=== PATIENT | female | born 1945 | race Caucasian/White ===

== ENCOUNTER → 2016-10-25 | Outpatient (REF) | payer MEDICARE, OTHER ==
[~2016-10-25] MED LIST: ASPI81TA85 PO; BYDU1INJ SC; CARV12.5 PO; CLEO1GEL TOP; CLEO300C2 PO; CORE25TA PO; ELIQ2.5T PO; ELIQ5TAB PO; LANO250T9 PO; LEVO100T5 PO; LEVO88TA3 PO; LIPI20TA PO; LISI10TA4 PO; LISI40TAB PO; METF1000 PO; METF500T PO; METR1GEL4 TOP; METROGEL; MULT1TAB8 PO; VITA10002 PO; VITA100066 PO; VITMTA PO; metformin; novofine; vitamin b12
[2016-10-25 12:01] LABS: MEAN CORPUSCULAR HEMOGLOBIN 26.5 pg (27.0-33.0); MEAN CORPUSCULAR HGB CONC 31.9 g/dl (32.0-36.5); MEAN CORPUSCULAR VOLUME 83.1 fl (80.0-96.0); RED CELL DISTRIBUTION WIDTH 14.9 % (11.5-14.5); WHITE BLOOD COUNT 7.4 K/mm3 (4.0-10.0)
[2016-10-25 12:20] LABS: ALBUMIN 3.7 GM/DL (3.2-5.2); ALBUMIN/GLOBULIN RATIO 1.32 (1.00-1.93); ALKALINE PHOSPHATASE 74 U/L (45-117); ALT/SGPT 20 U/L (12-78); ANION GAP 8 MEQ/L (8-16); AST/SGOT 10 U/L (15-37); BILIRUBIN,TOTAL 0.4 MG/DL (0.2-1.0); BLOOD UREA NITROGEN 10 MG/DL (7-18); CARBON DIOXIDE LEVEL 30 MEQ/L (21-32); CHLORIDE LEVEL 107 MEQ/L (98-107); CHOLESTEROL LEVEL 120 MG/DL (<200); CREATININE FOR GFR 0.82 MG/DL (0.55-1.02); FREE T4 1.14 NG/DL (0.76-1.46); GLOMERULAR FILTRATION RATE > 60.0 (>39); GLUCOSE, FASTING 146 MG/DL (83-110); SODIUM LEVEL 145 MEQ/L (136-145); TOTAL PROTEIN 6.5 GM/DL (6.4-8.2); TRIGLYCERIDES LEVEL 110 MG/DL (<150)
== END ==
LOC: M SFHCPLAZ 08:50
PROVIDERS: ATTEND Family Medicine
DX: I48.91 Unspecified atrial fibrillation (principal); I27.2 Other secondary pulmonary hypertension; E11.9 Type 2 diabetes mellitus without complications; E78.2 Mixed hyperlipidemia

== ENCOUNTER → 2016-11-02 | Outpatient (REF) | payer MEDICARE, OTHER ==
[~2016-11-02] MED LIST changes: +LANO250T12 PO; -LANO250T9 PO
[2016-11-02 13:48] LABS: MEAN CORPUSCULAR HEMOGLOBIN 25.4 pg (27.0-33.0); MEAN CORPUSCULAR HGB CONC 30.8 g/dl (32.0-36.5); MEAN CORPUSCULAR VOLUME 82.3 fl (80.0-96.0); RED CELL DISTRIBUTION WIDTH 16.3 % (11.5-14.5); RETIC HEMOGLOBIN CONTENT CHr 27.1 PG (24-36); RETICULOCYTE % ADVIA2120 1.3 % (0.5-1.5)
[2016-11-02 14:22] LABS: FERRITIN 9 NG/ML (8-252); PERCENT SATURATION 6.8 % (13.2-37.4); TOTAL IRON BINDING CAPACITY 384 UG/DL (250-450)
[2016-11-02 14:23] LABS: VITAMIN B12 LEVEL 385 PG/ML (247-911)
[2016-11-02 14:24] LABS: FOLATE > 24.0 NG/ML (>5.4)
[2016-11-02 19:06] LABS: MICROSCOPIC INDICATED? MAN NO (NO)
[2016-11-08 08:06] LABS: FREE KAPPA LIGHT CHAINS SERUM 22.09 mg/L (3.30-19.40); FREE KAPPA LIGHT CHAINS URINE 4.66 mg/L (1.35-24.19); FREE LAMBDA LIGHT CHAINS SERUM 19.26 mg/L (5.71-26.30); FREE LAMBDA LIGHT CHAINS URINE 0.35 mg/L (0.24-6.66); KAPPA/LAMBDA RATIO SERUM 1.15 (0.26-1.65)
== END ==
LOC: M SFHCPLAZ 11:13
PROVIDERS: ATTEND Family Medicine
DX: D64.9 Anemia, unspecified (principal)
CPT/HCPCS: 36415; 81002; 82607; 82728; 82746; 83550; 83883; 83921; 85027; 85046; G0463

== ENCOUNTER → 2016-11-16 | Outpatient (REF) | payer MEDICARE, OTHER ==
[2016-11-16 19:32] LABS: TOTAL PROTEIN 7.8 GM/DL (6.4-8.2)
[2016-11-19 11:34] LABS: ALBUMIN 4.45 GM/DL (3.29-5.55); ALBUMIN % 57.1 % (55.8-66.1)
== END ==
LOC: M SFHCADAM 13:56
PROVIDERS: ATTEND Family Medicine
DX: C90.00 Multiple myeloma not having achieved remission (principal)
CPT/HCPCS: 84165; 84166; 86335; G0463

== ENCOUNTER → 2016-12-11 | Outpatient (REF) | payer MEDICARE, OTHER ==
[2016-12-11 19:41] LABS: FERRITIN 14 NG/ML (8-252); IMMUNOGLOBULIN G 925 MG/DL (681-1648); IMMUNOGLOBULIN M 46.4 MG/DL (40-230); PERCENT SATURATION 8.2 % (13.2-37.4); TOTAL IRON BINDING CAPACITY 376 UG/DL (250-450)
== END ==
LOC: M LAB REF 16:38
PROVIDERS: ATTEND Internal Medicine Medical Oncology
DX: D89.2 Hypergammaglobulinemia, unspecified (principal); D50.9 Iron deficiency anemia, unspecified

== ENCOUNTER → 2017-02-01 | Outpatient (REF) | payer MEDICARE, OTHER ==
[~2017-02-01] MED LIST changes: +DIGO0.25 PO; +FERR325T3 PO; -LANO250T12 PO; +LANO250T15 PO
[2017-02-01 18:53] LABS: BASO % 0.3 % (0.0-1.0); EOS # 0.1 K/mm3 (0.0-0.50); EOS % 1.7 % (0.0-3.0); LARGE UNSTAINED CELL # 0.1 K/mm3 (0.0-0.4); LARGE UNSTAINED CELL % 1.7 % (0.0-4.0); LYMPH # 1.2 K/mm3 (1.5-4.5); LYMPH % 18.7 % (24.0-44.0); MEAN CORPUSCULAR HEMOGLOBIN 27.4 pg (27.0-33.0); MEAN CORPUSCULAR HGB CONC 31.3 g/dl (32.0-36.5); MEAN CORPUSCULAR VOLUME 87.6 fl (80.0-96.0); MONO # 0.3 K/mm3 (0.0-0.8); MONO % 4.4 % (0.0-5.0); NEUTROPHILS # 4.3 K/mm3 (1.8-7.7); NEUTROPHILS % 73.1 % (36.0-66.0); PLATELET COUNT, AUTOMATED 139 k/mm3 (150-450); RED CELL DISTRIBUTION WIDTH 15.5 % (11.5-14.5); WHITE BLOOD COUNT 5.9 K/mm3 (4.0-10.0)
[2017-02-01 19:12] LABS: ERYTHROCYTE SEDIMENTATION RATE 8 mm/hr (0-30)
[2017-02-01 19:14] LABS: ALBUMIN 3.7 GM/DL (3.2-5.2); ALBUMIN/GLOBULIN RATIO 1.12 (1.00-1.93); ALKALINE PHOSPHATASE 76 U/L (45-117); ALT/SGPT 23 U/L (12-78); ANION GAP 3 MEQ/L (8-16); AST/SGOT 17 U/L (15-37); BILIRUBIN,TOTAL 0.3 MG/DL (0.2-1.0); BLOOD UREA NITROGEN 13 MG/DL (7-18); CALCIUM LEVEL 8.4 MG/DL (8.8-10.2); CARBON DIOXIDE LEVEL 31 MEQ/L (21-32); CHLORIDE LEVEL 104 MEQ/L (98-107); CREATININE FOR GFR 0.82 MG/DL (0.55-1.02); GLOMERULAR FILTRATION RATE > 60.0 (>39); GLUCOSE, FASTING 145 MG/DL (83-110); POTASSIUM SERUM 4.5 MEQ/L (3.5-5.1); SODIUM LEVEL 138 MEQ/L (136-145)
[2017-02-06 00:11] LABS: Lyme Disease IgG/IgM Antibodie <0.91 ISR (0.00-0.90); Lyme Disease IgM Ab Quantitati <0.80 index (0.00-0.79)
== END ==
LOC: M SFHCADAM 14:46
PROVIDERS: ATTEND Physician Assistant Medical
DX: R53.83 Other fatigue (principal); M25.50 Pain in unspecified joint
CPT/HCPCS: 80053; 84443; 85025; 85652; 86140; 86617; G0463

== ENCOUNTER → 2017-02-20 | Outpatient (CLI) | payer MEDICARE, BC, OTHER ==
[~2017-02-20] VITALS: Ht 160 cm; Wt 66.2 kg
[~2017-02-20] MED LIST changes: +LIDOCAINE 2% INJ 100 MG/5 ML SDV (FOR ANES.) As Ordered ONE; +NS 1,000 ML IV ONE; +PROPOFOL 200 MG/20 ML VIAL As Ordered ONE
--- NOTE | 2017-02-20 09:42 | ROOR ---
Patient Name: Wilma Saeed Procedure Date: 02/20/2017 9:29 AM Date of : 1945 Age: 72 Room: [facility] Gender: Female Note Status: Finalized Procedure: Upper GI endoscopy + SBB Indications: Iron deficiency anemia Providers: Ronnie Ulloa MD Referring MD: Bladimir Burt MD Requesting Provider: Medicines: Monitored Anesthesia Care Complications: No immediate complications. Procedure: Pre-Anesthesia Assessment: - The heart rate, respiratory rate, oxygen saturations, blood pressure, adequacy of pulmonary ventilation, and response to care were monitored throughout the procedure. The Endoscope was introduced through the mouth, and advanced to the second part of duodenum. The upper GI endoscopy was accomplished without difficulty. The patient tolerated the procedure well. Findings: The Z-line was regular and was found 35 cm from the incisors. A large amount of food (residue) was found on the greater curvature of the stomach. The exam of the duodenum was otherwise normal. Biopsies for histology were taken with a cold forceps in the first portion of the duodenum for evaluation of celiac disease. The exam was otherwise without abnormality. Impression: - Z-line regular, 35 cm from the incisors. - A large amount of food (residue) in the stomach. - The examination was otherwise normal. - Biopsies were taken with a cold forceps for evaluation of celiac disease. - The examination was otherwise normal. Recommendation: - Patient has a contact number available for emergencies. The signs and symptoms of potential delayed complications were discussed with the patient. Return to normal activities tomorrow. Written discharge instructions were provided to the patient. - High fiber diet. - Discharge patient to home. - Continue present medications. - Follow an antireflux regimen. - Telephone GI clinic for pathology results in 1 week. - Check Portal Online for Path Results.([email or web address]) - Return to referring physician. - The findings and recommendations were discussed with the patient's family. - Resume Eliquis (apixaban) at prior dose today. Ronnie Ulloa MD Ronnie Ulloa MD 02/20/2017 9:41:50 AM This report has been signed electronically. Number of Addenda: 0 Note Initiated On: 02/20/2017 9:29 AM Estimated Blood Loss: Estimated blood loss: none.
[2017-02-20 10:13] VITALS: BP 143/80
== END | disposition home or self-care (01) ==
LOC: M OPP 08:26
PROVIDERS: ATTEND Internal Medicine Gastroenterology
DX: D50.9 Iron deficiency anemia, unspecified (principal); R10.9 Unspecified abdominal pain; I48.91 Unspecified atrial fibrillation; I10 Essential (primary) hypertension; E78.5 Hyperlipidemia, unspecified; E11.9 Type 2 diabetes mellitus without complications; E03.9 Hypothyroidism, unspecified; M19.90 Unspecified osteoarthritis, unspecified site; M54.2 Cervicalgia; Z87.820 Personal history of traumatic brain injury; Z78.0 Asymptomatic menopausal state; G47.30 Sleep apnea, unspecified; R06.83 Snoring; L71.9 Rosacea, unspecified; Z88.7 Allergy status to serum and vaccine; Z79.84 Long term (current) use of oral hypoglycemic drugs; Z79.899 Other long term (current) drug therapy; Z79.01 Long term (current) use of anticoagulants; Z80.9 Family history of malignant neoplasm, unspecified

== ENCOUNTER → 2017-04-19 | Outpatient (REF) | payer MEDICARE, OTHER ==
[~2017-04-19] MED LIST changes: -LIDOCAINE 2% INJ 100 MG/5 ML SDV (FOR ANES.) As Ordered ONE; -METF1000 PO; +METF10004 PO; -METF500T PO; +METF500T13 PO; -NS 1,000 ML IV ONE; -PROPOFOL 200 MG/20 ML VIAL As Ordered ONE
[2017-04-19 10:50] LABS: MEAN CORPUSCULAR HEMOGLOBIN 29.5 pg (27.0-33.0); MEAN CORPUSCULAR VOLUME 89.1 fl (80.0-96.0); RED CELL DISTRIBUTION WIDTH 13.3 % (11.5-14.5); RETICULOCYTE % 1.7 % (0.5-1.5); WHITE BLOOD COUNT 6.8 K/mm3 (4.0-10.0)
[2017-04-19 11:35] LABS: ALBUMIN 4.3 GM/DL (3.2-5.2); ALBUMIN/GLOBULIN RATIO 1.59 (1.00-1.93); ALKALINE PHOSPHATASE 78 U/L (45-117); ALT/SGPT 27 U/L (12-78); ANION GAP 6 MEQ/L (8-16); AST/SGOT 18 U/L (15-37); BILIRUBIN,TOTAL 0.7 MG/DL (0.2-1.0); BLOOD UREA NITROGEN 12 MG/DL (7-18); CALCIUM LEVEL 9.6 MG/DL (8.8-10.2); CARBON DIOXIDE LEVEL 32 MEQ/L (21-32); CHLORIDE LEVEL 103 MEQ/L (98-107); CREATININE FOR GFR 0.83 MG/DL (0.55-1.02); FERRITIN 44 NG/ML (8-252); GLOMERULAR FILTRATION RATE > 60.0 (>39); GLUCOSE, FASTING 146 MG/DL (83-110); PERCENT SATURATION 29.4 % (13.2-37.4); POTASSIUM SERUM 4.8 MEQ/L (3.5-5.1); SODIUM LEVEL 141 MEQ/L (136-145); TOTAL IRON BINDING CAPACITY 327 UG/DL (250-450)
== END ==
LOC: M SFHCPLAZ 09:15
PROVIDERS: ATTEND Family Medicine
DX: D50.8 Other iron deficiency anemias (principal); E11.9 Type 2 diabetes mellitus without complications; E03.9 Hypothyroidism, unspecified

== ENCOUNTER → 2017-07-31 | Outpatient (REF) | payer MEDICARE, OTHER | LOC: M SFHCADAM 15:10 | PROVIDERS: ATTEND Family Medicine | DX: D50.8 Other iron deficiency anemias (principal); E11.9 Type 2 diabetes mellitus without complications; E78.2 Mixed hyperlipidemia; Z53.8 Procedure and treatment not carried out for other reasons ==

== ENCOUNTER → 2017-08-02 | Outpatient (REF) | payer MEDICARE, OTHER ==
[2017-08-02 13:15] LABS: MEAN CORPUSCULAR HEMOGLOBIN 29.4 pg (27.0-33.0); MEAN CORPUSCULAR HGB CONC 32.9 g/dl (32.0-36.5); MEAN CORPUSCULAR VOLUME 89.1 fl (80.0-96.0); PLATELET COUNT, AUTOMATED 189 10^3/uL (150-450); RED CELL DISTRIBUTION WIDTH 12.1 % (11.5-14.5); RETIC HEMOGLOBIN EQUIVALENT 33.2 pg (24-36); RETICULOCYTE % 0.9 % (0.5-1.5); WHITE BLOOD COUNT 6.3 10^3/uL (4.0-10.0)
[2017-08-02 15:07] LABS: ALBUMIN 3.7 GM/DL (3.2-5.2); ALBUMIN/GLOBULIN RATIO 1.09 (1.00-1.93); ALKALINE PHOSPHATASE 86 U/L (45-117); ALT/SGPT 32 U/L (12-78); ANION GAP 10 MEQ/L (8-16); AST/SGOT 23 U/L (15-37); BILIRUBIN,TOTAL 0.4 MG/DL (0.2-1.0); BLOOD UREA NITROGEN 19 MG/DL (7-18); CALCIUM LEVEL 9.6 MG/DL (8.8-10.2); CARBON DIOXIDE LEVEL 28 MEQ/L (21-32); CHLORIDE LEVEL 99 MEQ/L (98-107); CHOLESTEROL LEVEL 120 MG/DL (<200); CREATININE FOR GFR 0.78 MG/DL (0.55-1.02); FERRITIN 81 NG/ML (8-252); GLOMERULAR FILTRATION RATE > 60.0 (>39); GLUCOSE, FASTING 172 MG/DL (83-110); PERCENT SATURATION 9.7 % (13.2-45.0); POTASSIUM SERUM 5.1 MEQ/L (3.5-5.1); SODIUM LEVEL 137 MEQ/L (136-145); TOTAL IRON BINDING CAPACITY 309 UG/DL (250-450); TOTAL PROTEIN 7.1 GM/DL (6.4-8.2); TRIGLYCERIDES LEVEL 151 MG/DL (<150)
== END ==
LOC: M SFHCADAM 10:45
PROVIDERS: ATTEND Family Medicine
DX: D50.8 Other iron deficiency anemias (principal); E11.9 Type 2 diabetes mellitus without complications; E78.2 Mixed hyperlipidemia

== ENCOUNTER → 2017-11-15 | Outpatient (REF) | payer MEDICARE, OTHER ==
[2017-11-15 20:25] LABS: ANION GAP 6 MEQ/L (8-16); BLOOD UREA NITROGEN 17 MG/DL (7-18); CALCIUM LEVEL 9.3 MG/DL (8.8-10.2); CARBON DIOXIDE LEVEL 30 MEQ/L (21-32); CHLORIDE LEVEL 104 MEQ/L (98-107); CREATININE FOR GFR 0.78 MG/DL (0.55-1.30); GLOMERULAR FILTRATION RATE > 60.0 (>39); GLUCOSE, FASTING 151 MG/DL (70-100); POTASSIUM SERUM 4.2 MEQ/L (3.5-5.1); SODIUM LEVEL 140 MEQ/L (136-145)
[2017-11-18 09:37] LABS: TOTAL 25(OH) VITAMIN D 23.7 NG/ML (30.0-100.0)
[2017-11-18 09:38] LABS: VITAMIN B12 LEVEL 280 PG/ML (247-911)
== END ==
LOC: M SFHCADAM 13:46
DX: E11.9 Type 2 diabetes mellitus without complications (principal); E55.9 Vitamin D deficiency, unspecified; Z23 Encounter for immunization
CPT/HCPCS: 82607

== ENCOUNTER → 2018-02-24 | Outpatient (REF) | payer MEDICARE, OTHER ==
[2018-02-24 13:26] LABS: HEMATOCRIT 42.6 % (36.0-47.0); HEMOGLOBIN 13.6 g/dl (12.0-15.5); MEAN CORPUSCULAR HEMOGLOBIN 28.6 pg (27.0-33.0); MEAN CORPUSCULAR HGB CONC 31.9 g/dl (32.0-36.5); MEAN CORPUSCULAR VOLUME 89.5 fl (80.0-96.0); PLATELET COUNT, AUTOMATED 184 10^3/uL (150-450); RED BLOOD COUNT 4.76 10^6/uL (4.00-5.40); RED CELL DISTRIBUTION WIDTH 12.7 % (11.5-14.5); WHITE BLOOD COUNT 7.5 10^3/uL (4.0-10.0)
[2018-02-24 13:34] LABS: ALBUMIN/GLOBULIN RATIO 1.25 (1.00-1.93); ALKALINE PHOSPHATASE 103 U/L (45-117); ALT/SGPT 30 U/L (12-78); ANION GAP 6 MEQ/L (8-16); AST/SGOT 16 U/L (7-37); BILIRUBIN,TOTAL 0.6 MG/DL (0.2-1.0); BLOOD UREA NITROGEN 12 MG/DL (7-18); CALCIUM LEVEL 9.6 MG/DL (8.8-10.2); CARBON DIOXIDE LEVEL 30 MEQ/L (21-32); CHLORIDE LEVEL 107 MEQ/L (98-107); CHOLESTEROL LEVEL 130 MG/DL (<200); CHOLESTEROL RISK RATIO 2.888 (<5); CREATININE FOR GFR 0.87 MG/DL (0.55-1.30); FREE T4 1.28 NG/DL (0.76-1.46); GLOMERULAR FILTRATION RATE > 60.0 (>39); GLUCOSE, FASTING 133 MG/DL (70-100); HDL CHOLESTEROL 45 MG/DL (>40); NON-HDL-C 85 MG/DL; POTASSIUM SERUM 4.8 MEQ/L (3.5-5.1); SODIUM LEVEL 143 MEQ/L (136-145); TOTAL PROTEIN 7.2 GM/DL (6.4-8.2); TRIGLYCERIDES LEVEL 110 MG/DL (<150)
[2018-02-24 14:03] LABS: ESTIMATED AVERAGE GLUCOSE 160 MG/DL (60-110); HEMOGLOBIN A1c 7.2 %
== END ==
LOC: M SFHCADAM 10:16
DX: I48.91 Unspecified atrial fibrillation (principal); D51.3 Other dietary vitamin B12 deficiency anemia; E11.9 Type 2 diabetes mellitus without complications; E03.9 Hypothyroidism, unspecified; E78.2 Mixed hyperlipidemia
CPT/HCPCS: 84443

== ENCOUNTER → 2018-04-08 | Outpatient (CLI) | payer MEDICARE, BC, OTHER | LOC: M ADAMS 14:00 | DX: M25.761 Osteophyte, right knee (principal); M13.161 Monoarthritis, not elsewhere classified, right knee; Z79.899 Other long term (current) drug therapy | CPT/HCPCS: 73564; 80048 ==

== ENCOUNTER → 2018-04-08 | Outpatient (REF) | payer MEDICARE, OTHER ==
[2018-04-08 19:59] LABS: BASO % 0.4 % (0.0-1.0); EOS # 0.2 10^3/uL (0.0-0.50); EOS % 2.1 % (0.0-3.0); HEMATOCRIT 38.3 % (36.0-47.0); HEMOGLOBIN 12.2 g/dl (12.0-15.5); IMMATURE GRANULOCYTE % 0.5 % (0-3.0); LYMPH # 2.2 10^3/uL (1.5-4.5); LYMPH % 25.9 % (24.0-44.0); MEAN CORPUSCULAR HGB CONC 31.9 g/dl (32.0-36.5); MONO # 0.7 10^3/uL (0.0-0.8); MONO % 8.2 % (0.0-5.0); NEUTROPHILS # 5.3 10^3/uL (1.8-7.7); NEUTROPHILS % 62.9 % (36.0-66.0); PLATELET COUNT, AUTOMATED 191 10^3/uL (150-450); RED BLOOD COUNT 4.21 10^6/uL (4.00-5.40); WHITE BLOOD COUNT 8.5 10^3/uL (4.0-10.0)
[2018-04-08 20:29] LABS: ANION GAP 8 MEQ/L (8-16); BLOOD UREA NITROGEN 14 MG/DL (7-18); CALCIUM LEVEL 8.8 MG/DL (8.8-10.2); CARBON DIOXIDE LEVEL 28 MEQ/L (21-32); CHLORIDE LEVEL 107 MEQ/L (98-107); CREATININE FOR GFR 0.86 MG/DL (0.55-1.30); GLOMERULAR FILTRATION RATE > 60.0 (>39); GLUCOSE, FASTING 144 MG/DL (70-100); POTASSIUM SERUM 4.2 MEQ/L (3.5-5.1); RHEUMATOID FACTOR QUANT < 10.0 IU/ML (<15.0); SODIUM LEVEL 143 MEQ/L (136-145)
[2018-04-08 20:43] LABS: ERYTHROCYTE SEDIMENTATION RATE 6 mm/hr (0-30)
== END ==
LOC: M SFHCADAM 13:58
DX: M13.161 Monoarthritis, not elsewhere classified, right knee (principal); Z79.899 Other long term (current) drug therapy
CPT/HCPCS: 80048

== ENCOUNTER → 2018-05-30 | Outpatient (CLI) | payer MEDICARE, BC, OTHER | LOC: M RAD 10:14 | DX: Z12.31 Encounter for screening mammogram for malignant neoplasm of breast (principal); Z78.0 Asymptomatic menopausal state; Z92.29 Personal history of other drug therapy; E11.9 Type 2 diabetes mellitus without complications | CPT/HCPCS: 77067 ==

== ENCOUNTER → 2018-05-30 | Outpatient (REF) | payer MEDICARE, OTHER ==
[2018-05-30 12:24] LABS: ANION GAP 9 MEQ/L (8-16); BLOOD UREA NITROGEN 13 MG/DL (7-18); CARBON DIOXIDE LEVEL 29 MEQ/L (21-32); CHLORIDE LEVEL 104 MEQ/L (98-107); CREATININE FOR GFR 0.93 MG/DL (0.55-1.30); GLOMERULAR FILTRATION RATE > 60.0 (>39); GLUCOSE, FASTING 154 MG/DL (70-100); POTASSIUM SERUM 4.6 MEQ/L (3.5-5.1); SODIUM LEVEL 142 MEQ/L (136-145)
[2018-05-30 12:33] LABS: ESTIMATED AVERAGE GLUCOSE 174 MG/DL (60-110); HEMOGLOBIN A1c 7.7 %
[2018-05-30 12:44] LABS: CREATININE, URINE 95.2 MG/DL; MALB URINE SIEMENS 8.5 MG/L; MAU/CREAT RATIO 8.9 MCG/MG (0.0-30.0)
== END ==
LOC: M SFHCADAM 08:49
DX: E11.9 Type 2 diabetes mellitus without complications (principal)

== ENCOUNTER → 2018-09-23 | Outpatient (REF) | payer MEDICARE, OTHER ==
[2018-09-23 13:55] LABS: ESTIMATED AVERAGE GLUCOSE 189 MG/DL (60-110); HEMOGLOBIN A1c 8.2 %
[2018-09-23 14:06] LABS: ALBUMIN 4.3 GM/DL (3.2-5.2); ALBUMIN/GLOBULIN RATIO 1.48 (1.00-1.93); ALKALINE PHOSPHATASE 93 U/L (45-117); ALT/SGPT 28 U/L (12-78); ANION GAP 6 MEQ/L (8-16); AST/SGOT 17 U/L (7-37); BILIRUBIN,TOTAL 0.5 MG/DL (0.2-1.0); BLOOD UREA NITROGEN 19 MG/DL (7-18); CALCIUM LEVEL 9.5 MG/DL (8.8-10.2); CARBON DIOXIDE LEVEL 27 MEQ/L (21-32); CHLORIDE LEVEL 104 MEQ/L (98-107); CHOLESTEROL LEVEL 151 MG/DL (<200); CHOLESTEROL RISK RATIO 3.511 (<5); CREATININE FOR GFR 0.97 MG/DL (0.55-1.30); DIGOXIN LEVEL 3.2 NG/ML (0.5-2.0); FREE T4 1.38 NG/DL (0.76-1.46); GLOMERULAR FILTRATION RATE > 60.0 (>39); GLUCOSE, FASTING 156 MG/DL (70-100); HDL CHOLESTEROL 43 MG/DL (>40); LDL CHOLESTEROL 76 MG/DL (<100); NON-HDL-C 108 MG/DL; POTASSIUM SERUM 5.2 MEQ/L (3.5-5.1); SODIUM LEVEL 137 MEQ/L (136-145); TOTAL PROTEIN 7.2 GM/DL (6.4-8.2); TRIGLYCERIDES LEVEL 162 MG/DL (<150)
== END ==
LOC: M SFHCADAM 09:52
DX: E11.9 Type 2 diabetes mellitus without complications (principal); I48.91 Unspecified atrial fibrillation; R11.0 Nausea; E03.9 Hypothyroidism, unspecified; E78.2 Mixed hyperlipidemia
CPT/HCPCS: 80162

== ENCOUNTER → 2018-09-24 | Outpatient (REF) | payer MEDICARE, OTHER ==
[2018-09-24 12:41] LABS: DIGOXIN LEVEL 1.5 NG/ML (0.5-2.0)
== END ==
LOC: M SFHCPLAZ 08:05
DX: T46.0X Poisoning by, adverse effect of and underdosing of cardiac-stimulant glycosides and drugs of similar action (principal); Z79.899 Other long term (current) drug therapy
CPT/HCPCS: 80162

== ENCOUNTER → 2018-09-29 | Outpatient (REF) | payer MEDICARE, OTHER ==
[2018-09-29 13:22] LABS: BLOOD UREA NITROGEN 19 MG/DL (7-18); CALCIUM LEVEL 9.1 MG/DL (8.8-10.2); CARBON DIOXIDE LEVEL 30 MEQ/L (21-32); CHLORIDE LEVEL 106 MEQ/L (98-107); CREATININE FOR GFR 0.83 MG/DL (0.55-1.30); DIGOXIN LEVEL 0.8 NG/ML (0.5-2.0); GLOMERULAR FILTRATION RATE > 60.0 (>39); GLUCOSE, FASTING 167 MG/DL (70-100); POTASSIUM SERUM 4.3 MEQ/L (3.5-5.1); SODIUM LEVEL 144 MEQ/L (136-145)
== END ==
LOC: M SFHCPLAZ 10:11
PROVIDERS: ATTEND Family Medicine
DX: I48.91 Unspecified atrial fibrillation (principal)

== ENCOUNTER → 2019-01-13 | Outpatient (REF) | payer MEDICARE, OTHER ==
[~2019-01-13] MED LIST changes: +LISI40TA PO
[2019-01-13 13:42] LABS: BLOOD UREA NITROGEN 20 MG/DL (7-18); CALCIUM LEVEL 9.3 MG/DL (8.8-10.2); CARBON DIOXIDE LEVEL 28 MEQ/L (21-32); CHLORIDE LEVEL 106 MEQ/L (98-107); CREATININE FOR GFR 0.87 MG/DL (0.55-1.30); GLOMERULAR FILTRATION RATE > 60.0 (>39); GLUCOSE, FASTING 120 MG/DL (70-100); POTASSIUM SERUM 4.4 MEQ/L (3.5-5.1); SODIUM LEVEL 141 MEQ/L (136-145)
[2019-01-13 14:17] LABS: HEMOGLOBIN A1c 7.3 %
== END ==
LOC: M SFHCADAM 09:31
PROVIDERS: ATTEND Family Medicine
DX: E11.9 Type 2 diabetes mellitus without complications (principal)

== ENCOUNTER → 2019-05-27 | Outpatient (CLI) | payer MEDICARE, OTHER ==
[~2019-05-27] MED LIST changes: +CYAN100049 PO; +LISI40TA52 PO; -LISI40TAB PO; -VITA10002 PO
--- NOTE | 2019-05-27 15:49 | REP ---
HISTORY: Arthritis. COMPARISON: None. There is mild to moderate asymmetric AC joint narrowing with slight marginal osteophytosis. The glenohumeral relationship is within normal limits. There is no evidence of an acute fracture. IMPRESSION: Chronic changes as described above. Electronically Signed by Alex Wade DO 05/28/2019 03:22 P
== END ==
LOC: M ADAMS 13:55
PROVIDERS: ATTEND Family Medicine
DX: M19.011 Primary osteoarthritis, right shoulder (principal)
CPT/HCPCS: 73030; G0463

== ENCOUNTER → 2019-09-15 | Outpatient (REF) | payer MEDICARE, OTHER ==
[2019-09-15 12:51] LABS: HEMATOCRIT 40.4 % (36.0-47.0); HEMOGLOBIN 12.6 g/dl (12.0-15.5); MEAN CORPUSCULAR HEMOGLOBIN 28.5 pg (27.0-33.0); MEAN CORPUSCULAR HGB CONC 31.2 g/dl (32.0-36.5); MEAN CORPUSCULAR VOLUME 91.4 fl (80.0-96.0); PLATELET COUNT, AUTOMATED 173 10^3/uL (150-450); RED BLOOD COUNT 4.42 10^6/uL (4.00-5.40); WHITE BLOOD COUNT 8.2 10^3/uL (4.0-10.0)
[2019-09-15 13:18] LABS: ALBUMIN 3.9 GM/DL (3.2-5.2); ALT/SGPT 28 U/L (12-78); BILIRUBIN,TOTAL 0.5 MG/DL (0.2-1.0); BLOOD UREA NITROGEN 18 MG/DL (7-18); CALCIUM LEVEL 9.3 MG/DL (8.8-10.2); CARBON DIOXIDE LEVEL 29 MEQ/L (21-32); CHLORIDE LEVEL 105 MEQ/L (98-107); CHOLESTEROL LEVEL 143 MG/DL (<200); CHOLESTEROL RISK RATIO 2.918 (<5); CREATININE FOR GFR 0.96 MG/DL (0.55-1.30); FREE T4 1.05 NG/DL (0.76-1.46); GLOMERULAR FILTRATION RATE > 60.0 (>39); GLUCOSE, FASTING 122 MG/DL (70-100); HDL CHOLESTEROL 49 MG/DL (>40); LDL CHOLESTEROL 67 MG/DL (<100); NON-HDL-C 94 MG/DL; POTASSIUM SERUM 4.8 MEQ/L (3.5-5.1); SODIUM LEVEL 141 MEQ/L (136-145); TRIGLYCERIDES LEVEL 134 MG/DL (<150); VITAMIN B12 LEVEL 145 PG/ML (247-911)
[2019-09-15 13:37] LABS: HEMOGLOBIN A1c 7.3 %
[2019-09-15 13:42] LABS: MALB URINE SIEMENS 11.3 MG/L; MAU/CREAT RATIO 10.6 MCG/MG (0.0-30.0)
== END ==
LOC: M SFHCADAM 10:23
PROVIDERS: ATTEND Family Medicine
DX: D51.3 Other dietary vitamin B12 deficiency anemia (principal); E11.9 Type 2 diabetes mellitus without complications; E78.2 Mixed hyperlipidemia; E03.9 Hypothyroidism, unspecified

== ENCOUNTER 2019-10-22 07:06 | Day surgery (SDC) | payer MEDICARE, BC, OTHER ==
[~2019-10-22] VITALS: Ht 160 cm; Wt 63.1 kg
[~2019-10-22 07:06] MED LIST changes: +BSS IRR 500ML/OMIDRIA 4ML IRR BAG (OR ONLY) (J1097 PER ML) As Ordered ONE; +CEFUROXIME 1MG/0.1ML INTRACAMERAL INJ As Ordered ONE; +CREO24CA PO; +DOXY20TA4 PO; +DUOVISC (0.50ML VISCOAT/0.55ML PROVISC) OPHTH KIT As Ordered ONE; +FARX1TAB3 PO; +OFLOXACIN 0.3 % (OCUFLOX) OPTH SOL 5ML OD ONE; +PHENYLEPHRINE 2.5% OPHTH SOL 2ML OD ONE; +POVIDONE-IODINE 5% OPHTH PREP SOL 30ML As Ordered ONE; +PROPARACAINE 0.5% OPHTH SOL 15ML OD ONE; +TROPICAMIDE 1% OPHTH SOLN 2ML OD ONE
[2019-10-22] MEDS ORDERED: MIDAZOLAM INJ 2 MG/2 ML VIAL (J2250) As Ordered ONE (07:16)
[2019-10-22 09:15] VITALS: BP 135/74
--- NOTE | 2019-10-23 19:47 | RO ---
DATE OF PROCEDURE: 10/22/2019 PREOPERATIVE DIAGNOSIS: 1. Visually significant nuclear sclerotic cataract right eye. POSTOPERATIVE DIAGNOSIS: 1. Visually significant nuclear sclerotic cataract right eye. PROCEDURE: 1. Cataract extraction with use of phacoemulsification and placement of intraocular lens, AU00T0, 17.5 D, right eye. SURGEON: Tyrell Ulloa DO COMMAND POST SUPERINTENDENT: None. ANESTHESIA: Local with monitored anesthesia care (MAC), Omidria (4mL/500mL) (Omeros) COMPLICATIONS: None. POSTOPERATIVE CONDITION: Stable. INDICATIONS FOR SURGERY: 1. Blurred vision affecting patients activities of daily living. DESCRIPTION OF PROCEDURE: The patient was seen in the preoperative area and properly identified. The correct operative eye was identified and marked. The patient received topical anesthetic, antibiotics, and topical dilating drops. The patient was then transferred to the operating room. The correct side was re-identified, and a time-out was performed. The eye was prepped and draped in a sterile fashion. The eyelids were isolated with Tegaderm tape, and the lids were held open with an adjustable speculum. A 1.0 mm paracentesis incision was made. Intraocular preservative-free Shugarcaine was then injected into the anterior chamber. Viscoelastic was then injected into the anterior chamber through the paracentesis. Using a 2.4 mm sharp-tipped keratome, the anterior chamber was entered via a temporal clear cornea incision. A continuous curvilinear capsulorrhexis was created with Utrata forceps. Hydrodissection was performed with balanced salt solution (BSS) on a blunt cannula until the nucleus was able to rotate freely. The crystalline lens was phacoemulsified and aspirated. Irrigation/aspiration was used to remove the cortical material. Cohesive viscoelastic was placed into the capsular bag to deepen it. The implant was placed into the capsular bag and allowed to unfold. Placement was confirmed by visualizing the anterior capsulorrhexis. Irrigation/aspiration was used to remove the viscoelastic. The clear corneal incision was hydrated with BSS on a blunt cannula. The lens was well positioned. The incisions were then tested for leaks and found to be negative. Cefuroxime was injected into the anterior chamber. The eye was then palpated for appropriate pressure and adjusted accordingly with BSS. The eyelid speculum was then carefully removed. A shield was placed over the eye. The patient tolerated the procedure well and was discharged to the recovery unit in a stable condition. JEWEL
== END 2019-10-22 09:30 | disposition home or self-care (01) ==
LOC: M SDC 07:06
PROVIDERS: ATTEND Ophthalmology
DX: H25.11 Age-related nuclear cataract, right eye (principal); I10 Essential (primary) hypertension; E78.5 Hyperlipidemia, unspecified; F32.9 Major depressive disorder, single episode, unspecified; E11.9 Type 2 diabetes mellitus without complications; I48.91 Unspecified atrial fibrillation; G47.30 Sleep apnea, unspecified; Z88.7 Allergy status to serum and vaccine; Z79.01 Long term (current) use of anticoagulants; Z79.84 Long term (current) use of oral hypoglycemic drugs; Z79.899 Other long term (current) drug therapy
CPT/HCPCS: 66984; J1097; J2250; V2632

== ENCOUNTER 2019-11-05 09:19 | Day surgery (SDC) | payer MEDICARE, BC, OTHER ==
[~2019-11-05] VITALS: Ht 160 cm; Wt 61.2 kg
[~2019-11-05 09:19] MED LIST changes: -OFLOXACIN 0.3 % (OCUFLOX) OPTH SOL 5ML OD ONE; +OFLOXACIN 0.3 % (OCUFLOX) OPTH SOL 5ML OS ONE; -PHENYLEPHRINE 2.5% OPHTH SOL 2ML OD ONE; +PHENYLEPHRINE 2.5% OPHTH SOL 2ML OS ONE; -PROPARACAINE 0.5% OPHTH SOL 15ML OD ONE; +PROPARACAINE 0.5% OPHTH SOL 15ML OS ONE; -TROPICAMIDE 1% OPHTH SOLN 2ML OD ONE; +TROPICAMIDE 1% OPHTH SOLN 2ML OS ONE
[2019-11-05] MEDS ORDERED: MIDAZOLAM INJ 2 MG/2 ML VIAL (J2250) As Ordered ONE (09:47)
[2019-11-05] MEDS ORDERED: fentaNYL 100 MCG/2 ML INJECTION (J3010) As Ordered ONE (09:47)
[2019-11-05 12:15] VITALS: BP 140/68
[2019-11-05] MEDS ORDERED: ONDANSETRON 4MG/2ML VIAL (J2405) IV PRN (12:15)
--- NOTE | 2019-11-06 16:49 | RO ---
DATE OF PROCEDURE: 11/05/2019 PREOPERATIVE DIAGNOSIS: 1. Visually significant nuclear sclerotic cataract left eye. POSTOPERATIVE DIAGNOSIS: 1. Visually significant nuclear sclerotic cataract left eye. PROCEDURE: 1. Cataract extraction with use of phacoemulsification and placement of intraocular lens, AU00T0, 19.0 D, left eye. SURGEON: Tyrell Ulloa DO STAFF REPORTER: None. ANESTHESIA: Local with monitored anesthesia care (MAC), with Omidria (4 mL/500 mL) mixed into irrigation solution. COMPLICATIONS: None. POSTOPERATIVE CONDITION: Stable. INDICATIONS FOR SURGERY: 1. Blurred vision affecting patients activities of daily living. DESCRIPTION OF PROCEDURE: The patient was seen in the preoperative area and properly identified. The correct operative eye was identified and marked. The patient received topical anesthetic, antibiotics, and topical dilating drops. The patient was then transferred to the operating room. The correct side was re-identified, and a time-out was performed. The eye was prepped and draped in a sterile fashion. The eyelids were isolated with Tegaderm tape, and the lids were held open with an adjustable speculum. A 1.0 mm paracentesis incision was made. Intraocular preservative-free Shugarcaine was then injected into the anterior chamber. Viscoelastic was then injected into the anterior chamber through the paracentesis. Using a 2.4 mm sharp-tipped keratome, the anterior chamber was entered via a temporal clear cornea incision. A continuous curvilinear capsulorrhexis was created with Utrata forceps. Hydrodissection was performed with balanced salt solution (BSS) on a blunt cannula until the nucleus was able to rotate freely. The crystalline lens was phacoemulsified and aspirated. Irrigation/aspiration was used to remove the cortical material. Cohesive viscoelastic was placed into the capsular bag to deepen it. The implant was placed into the capsular bag and allowed to unfold. Placement was confirmed by visualizing the anterior capsulorrhexis. Irrigation/aspiration was used to remove the viscoelastic. The clear corneal incision was hydrated with BSS on a blunt cannula. The lens was well positioned. The incisions were then tested for leaks and found to be negative. Cefuroxime was injected into the anterior chamber. The eye was then palpated for appropriate pressure and adjusted accordingly with BSS. The eyelid speculum was then carefully removed. A shield was placed over the eye. The patient tolerated the procedure well and was discharged to the recovery unit in a stable condition.
== END 2019-11-05 12:28 | disposition home or self-care (01) ==
LOC: M SDC 09:19
PROVIDERS: ATTEND Ophthalmology
DX: H25.12 Age-related nuclear cataract, left eye (principal); I48.91 Unspecified atrial fibrillation; I10 Essential (primary) hypertension; E78.5 Hyperlipidemia, unspecified; E03.9 Hypothyroidism, unspecified; E11.9 Type 2 diabetes mellitus without complications; F32.9 Major depressive disorder, single episode, unspecified; Z79.01 Long term (current) use of anticoagulants; Z79.84 Long term (current) use of oral hypoglycemic drugs; Z79.899 Other long term (current) drug therapy; Z88.7 Allergy status to serum and vaccine
CPT/HCPCS: 66984; J1097; J2250; J3010; V2632

== ENCOUNTER → 2019-12-30 | Outpatient (REF) | payer MEDICARE, OTHER ==
[~2019-12-30] MED LIST changes: -BSS IRR 500ML/OMIDRIA 4ML IRR BAG (OR ONLY) (J1097 PER ML) As Ordered ONE; -CEFUROXIME 1MG/0.1ML INTRACAMERAL INJ As Ordered ONE; -DUOVISC (0.50ML VISCOAT/0.55ML PROVISC) OPHTH KIT As Ordered ONE; -OFLOXACIN 0.3 % (OCUFLOX) OPTH SOL 5ML OS ONE; -PHENYLEPHRINE 2.5% OPHTH SOL 2ML OS ONE; -POVIDONE-IODINE 5% OPHTH PREP SOL 30ML As Ordered ONE; -PROPARACAINE 0.5% OPHTH SOL 15ML OS ONE; -TROPICAMIDE 1% OPHTH SOLN 2ML OS ONE
[2019-12-30 13:44] LABS: HEMOGLOBIN A1c 7.8 %
[2019-12-30 13:53] LABS: BLOOD UREA NITROGEN 15 MG/DL (7-18); CALCIUM LEVEL 9.6 MG/DL (8.8-10.2); CARBON DIOXIDE LEVEL 30 MEQ/L (21-32); CHLORIDE LEVEL 104 MEQ/L (98-107); CREATININE FOR GFR 0.87 MG/DL (0.55-1.30); GLOMERULAR FILTRATION RATE > 60.0 (>39); GLUCOSE, FASTING 117 MG/DL (70-100); POTASSIUM SERUM 4.3 MEQ/L (3.5-5.1); SODIUM LEVEL 140 MEQ/L (136-145)
[2019-12-30 14:03] LABS: VITAMIN B12 LEVEL 426 PG/ML (247-911)
== END ==
LOC: M SFHCADAM 09:10
PROVIDERS: ATTEND Family Medicine
DX: E11.9 Type 2 diabetes mellitus without complications (principal); D51.3 Other dietary vitamin B12 deficiency anemia

== ENCOUNTER → 2020-07-27 | Outpatient (REF) | payer MEDICARE, OTHER ==
[~2020-07-27] MED LIST changes: -ASPI81TA85 PO; +ASPI81TA86 PO
[2020-07-27 13:31] LABS: HEMATOCRIT 39.5 % (36.0-47.0); HEMOGLOBIN 12.2 g/dl (12.0-15.5); MEAN CORPUSCULAR HEMOGLOBIN 27.5 pg (27.0-33.0); MEAN CORPUSCULAR HGB CONC 30.9 g/dl (32.0-36.5); MEAN CORPUSCULAR VOLUME 89.2 fl (80.0-96.0); PLATELET COUNT, AUTOMATED 171 10^3/uL (150-450); RED BLOOD COUNT 4.43 10^6/uL (4.00-5.40); WHITE BLOOD COUNT 7.8 10^3/uL (4.0-10.0)
[2020-07-27 13:50] LABS: HEMOGLOBIN A1c 7.2 %
[2020-07-27 14:18] LABS: CREATININE, URINE 82.1 MG/DL; MALB URINE SIEMENS 11.8 MG/L; MAU/CREAT RATIO 14.3 MCG/MG (0.0-30.0)
[2020-07-27 14:28] LABS: ALBUMIN 4.2 GM/DL (3.2-5.2); ALT/SGPT 28 U/L (12-78); BILIRUBIN,TOTAL 0.5 MG/DL (0.2-1.0); BLOOD UREA NITROGEN 14 MG/DL (7-18); CALCIUM LEVEL 9.8 MG/DL (8.8-10.2); CARBON DIOXIDE LEVEL 30 MEQ/L (21-32); CHLORIDE LEVEL 106 MEQ/L (98-107); CHOLESTEROL LEVEL 128 MG/DL (<200); CREATININE FOR GFR 0.85 MG/DL (0.55-1.30); FREE T4 1.28 NG/DL (0.76-1.46); GLOMERULAR FILTRATION RATE > 60.0 (>39); GLUCOSE, FASTING 112 MG/DL (70-100); HDL CHOLESTEROL 50 MG/DL (>40); LDL CHOLESTEROL 59 MG/DL (<100); NON-HDL-C 78 MG/DL; POTASSIUM SERUM 4.9 MEQ/L (3.5-5.1); SODIUM LEVEL 141 MEQ/L (136-145); TOTAL PROTEIN 7.1 GM/DL (6.4-8.2); TRIGLYCERIDES LEVEL 93 MG/DL (<150)
[2020-07-27 14:37] LABS: VITAMIN B12 LEVEL 395 PG/ML (247-911)
== END ==
LOC: M SFHCADAM 10:24
PROVIDERS: ATTEND Family Medicine
DX: I48.91 Unspecified atrial fibrillation (principal); D51.3 Other dietary vitamin B12 deficiency anemia; E11.9 Type 2 diabetes mellitus without complications; E03.9 Hypothyroidism, unspecified; E78.2 Mixed hyperlipidemia; Z23 Encounter for immunization
CPT/HCPCS: 80053; 80061; 82043; 82607; 83036; 84439; 84443; 85027; 90472; 90682; 90750; G0008; G0463

== ENCOUNTER 2020-08-22 11:16 | Emergency (ER) | payer MEDICARE, BC, OTHER ==
[~2020-08-22] VITALS: Ht 160 cm; Wt 65.2 kg
--- NOTE | 2020-08-22 11:51 | REP ---
INDICATION: trauma. COMPARISON: August 31, 2016.. TECHNIQUE: Helical scanning is acquired. 5 mm axial images were reformatted. Coronal MPR images were generated. FINDINGS: Bone window settings demonstrate an intact bony calvarium. There is no evidence of skull fracture or incidental bony calvarial lesion. The visualized paranasal sinuses appear clear. No intraorbital abnormality is seen. On soft tissue window setting images; the lateral, third, and fourth ventricles are normal in size and position. Sadler-white differentiation pattern is normal above and below the tentorium. There are is no evidence of intracranial hemorrhage. No mass, edema, infarction, or midline shift is seen. No extra-axial fluid collection is appreciated. There is mild vascular calcification in the distal internal carotid arteries bilaterally. Minimal generalized volume loss again seen. There is a small zone of encephalomalacia in the inferior aspect of the temporal lobe on the left from an old hemorrhage in this location. No acute hemorrhage is seen. IMPRESSION: Generalized volume loss and vascular calcification. 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 No acute intracranial abnormality.. <Electronically signed by Orlando Villafuerte > 08/22/20 [id number]
--- NOTE | 2020-08-22 11:55 | REP ---
INDICATION: trauma. COMPARISON: July 30, 2016.. TECHNIQUE: Helical scanning is acquired and overlapping 2 mm high resolution axial images were generated and reviewed at bone and soft tissue window settings. Coronal and sagittal multiplanar re-formations images are generated. FINDINGS: There is no evidence of cervical spine element fracture. No skull base fracture is seen. Cervical vertebral body heights are preserved. Alignment is normal. Facet joints are normally aligned bilaterally at each cervical level on multiplanar re-formations images. There is no evidence of intraspinal or paraspinal hematoma. No extra vertebral abnormality is seen. Vascular calcifications noted. There is degenerative spondylosis change again noted multiple levels in the cervical spine, degenerative disc disease most pronounced at C5-6 and C6-7. There is osteoarthritic facet change bilaterally in the mid cervical spine most pronounced at 3 4 and C4-5 on the right. The left C4-5 facet appears to be fused. This is unchanged. The lung apices are clear. There is neural foraminal narrowing bilaterally at the C 5 6. This is unchanged. IMPRESSION: Degenerative spondylosis changes again noted. Stable findings from July 30, 2016. No fracture is seen.. <Electronically signed by Orlando Villafuerte > 08/22/20 [id number]
--- NOTE | 2020-08-22 11:57 | REP ---
INDICATION: trauma. COMPARISON: NONE. TECHNIQUE: Helical scanning is acquired and 2 mm axial images re-formatted. Coronal MPR images are generated and reviewed. FINDINGS: Vascular calcification is noted. Maxillary sinuses are clear. Ethmoid and sphenoid aeration is normal. The right frontal sinus is not developed. Left frontal sinus is clear. Mastoid aeration is normal and symmetric. No skull base fracture is seen. Zygomatic arches are intact. Bony orbital margins and paranasal sinus margins are intact. No mandibular fracture is seen. The nasal bone and inferior maxillary spine have an intact appearance. No intraorbital or periorbital hematoma is appreciated. There are osteoarthritic changes at the temporomandibular joints bilaterally. IMPRESSION: Negative maxillofacial CT study. Bilateral TMJ osteoarthritis. No facial fracture seen. <Electronically signed by Orlando Villafuerte > 08/22/20 [id number]
[2020-08-22] MEDS ORDERED: ACETAMINOPHEN 325 MG TAB PO ONE (12:15)
--- NOTE | 2020-08-22 13:02 | REP ---
INDICATION: fell onto knees from standing position L>R. COMPARISON: Comparison knee radiographs are from April 08, 2018.. TECHNIQUE: Ten views obtained, 5 from each side. FINDINGS: Five views of each knee are presented. There is bilateral patellofemoral osteoarthritis with spurring and joint space narrowing, no patellar fracture is seen. There is diffuse osteopenia. There is mild medial compartment osteoarthritis bilaterally. No fracture or joint effusion is seen. Vascular calcification is noted. IMPRESSION: There is diffuse osteopenia. Three compartment osteoarthritis is seen bilaterally. No fracture, subluxation, or joint effusion is seen.. <Electronically signed by Orlando Villafuerte > 08/22/20 [id number]
[2020-08-22 13:47] VITALS: BP 141/101
--- NOTE | 2020-08-23 00:52 | ECGEPIP ---
[facility] - ED Test Date: 2020-08-22 Pat Name: JOSI CAT Department: Room: - Gender: Female Sales Vendor: : 1945 Requested By: YOKO Sanz PA-C Order Number: [id number] Reading MD: Luis Hutton Measurements Intervals [place] Rate: 88 P: NE: 0 QRS: 69 QRSD: 96 T: -20 QT: 328 QTc: 399 Interpretive Statements ATRIAL FIBRILLATION NSTTW ABNORMALITY(S) RATE CHANGE COMPARED TO 07/30/16 Electronically Signed on 08-23-2020 0:52:13 EST by Luis Hutton
== END 2020-08-22 13:47 | disposition home or self-care (01) ==
LOC: M ED 11:16
DX: S00.31XA Abrasion of nose, initial encounter (principal); I48.91 Unspecified atrial fibrillation; W01.0XXA Fall on same level from slipping, tripping and stumbling without subsequent striking against object, initial encounter; Y92.89 Other specified places as the place of occurrence of the external cause; Y93.K1 Activity, walking an animal; Y99.9 Unspecified external cause status; E11.9 Type 2 diabetes mellitus without complications; I10 Essential (primary) hypertension; E78.5 Hyperlipidemia, unspecified; E03.9 Hypothyroidism, unspecified; S06.330A Contusion and laceration of cerebrum, unspecified, without loss of consciousness, initial encounter; M85.869 Other specified disorders of bone density and structure, unspecified lower leg; M47.812 Spondylosis without myelopathy or radiculopathy, cervical region; M26.603 Bilateral temporomandibular joint disorder, unspecified; Z79.01 Long term (current) use of anticoagulants; Z79.899 Other long term (current) drug therapy; Z88.7 Allergy status to serum and vaccine

== ENCOUNTER → 2021-01-03 | Outpatient (REF) | payer MEDICARE, OTHER ==
[~2021-01-03] MED LIST changes: +LISI10TA22 PO; -LISI10TA4 PO; -LISI40TA PO; +LISI40TA4 PO
[2021-01-03 13:31] LABS: BLOOD UREA NITROGEN 15 MG/DL (7-18); CALCIUM LEVEL 9.2 MG/DL (8.8-10.2); CARBON DIOXIDE LEVEL 29 MEQ/L (21-32); CHLORIDE LEVEL 106 MEQ/L (98-107); CREATININE FOR GFR 0.85 MG/DL (0.55-1.30); GLOMERULAR FILTRATION RATE > 60.0 (>39); GLUCOSE, FASTING 138 MG/DL (70-100); POTASSIUM SERUM 4.3 MEQ/L (3.5-5.1); SODIUM LEVEL 142 MEQ/L (136-145)
[2021-01-03 14:01] LABS: HEMOGLOBIN A1c 7.4 %
== END ==
LOC: M SFHCADAM 08:36
PROVIDERS: ATTEND Family Medicine
DX: E11.9 Type 2 diabetes mellitus without complications (principal)

== ENCOUNTER → 2021-01-13 | Outpatient (CLI) | payer MEDICARE, OTHER | LOC: M SOG 11:48 | PROVIDERS: ATTEND Orthopaedic Surgery Sports Medicine | DX: Z53.8 Procedure and treatment not carried out for other reasons (principal) ==

== ENCOUNTER → 2021-03-10 | Outpatient (CLI) | payer MEDICARE, OTHER ==
[~2021-03-10] MED LIST changes: +BYDU2INJ7 SC; +DIGO0.253 PO
== END ==
LOC: M LABSMTC 12:55
PROVIDERS: ATTEND Anesthesiology
DX: Z01.812 Encounter for preprocedural laboratory examination (principal); Z20.822 Contact with and (suspected) exposure to COVID-19

== ENCOUNTER 2021-03-15 06:14 | Day surgery (SDC) | payer MEDICARE, BC, OTHER ==
[~2021-03-15] VITALS: Ht 157.5 cm; Wt 65.3 kg
[~2021-03-15 06:14] MED LIST changes: +LR 1,000 ML IV ONE; +ceFAZolin SOD 2 GM in IV 1 EA IV ONE
[2021-03-15] MEDS ORDERED: ONDANSETRON 4MG/2ML VIAL As Ordered ONE (07:11)
[2021-03-15] MEDS ORDERED: LIDOCAINE 2% 100MG/5ML SDV (FOR ANES.) As Ordered ONE (07:11)
[2021-03-15] MEDS ORDERED: dexameTHASONE 4 MG/ML 1ML VIAL (J1100 PER 1MG) As Ordered ONE (07:11)
[2021-03-15] MEDS ORDERED: LIDOCAINE 1% SDV 30ML VIAL As Ordered ONE (07:11)
[2021-03-15] MEDS ORDERED: KETOROLAC 60MG 2ML VIAL As Ordered ONE (07:11)
[2021-03-15] MEDS ORDERED: MIDAZOLAM INJ 2MG/2ML VIAL (J2250 PER 1MG) As Ordered ONE (07:11)
[2021-03-15] MEDS ORDERED: propofoL 200 MG/20 ML VIAL As Ordered ONE (07:11)
[2021-03-15] MEDS ORDERED: fentaNYL 100 MCG/2 ML INJECTION (J3010) As Ordered ONE (07:11)
[2021-03-15] MEDS ORDERED: BUPIVACAINE/EPIN 0.25% 30 ML VIAL As Ordered ONE (07:12)
[2021-03-15 08:30] VITALS: BP 124/71
--- NOTE | 2021-03-15 08:33 | ROOPDOC ---
[facility] Report Of Operation Report of Operation DATE OF PROCEDURE: 03/15/21 PREPROCEDURE DIAGNOSES: Right carpal tunnel syndrome. POSTPROCEDURE DIAGNOSES: Same. PROCEDURE: Right open carpal tunnel release. SURGEON: Dr. Taurus Moon MD INSULATION BLOWER: ANESTHESIA: Dr. Munoz. Local/Mac. ESTIMATED BLOOD LOSS: Approximately 5 mL. COMPLICATIONS: None. REMARKS: None. PROCEDURE NOTE: This 76-year-old female had signs and symptoms and nerve conduction study evidence of right moderate carpal tunnel syndrome. She was to go ahead with surgery. I reiterated the pros and cons risks and benefits of nonsurgical versus surgical management. She wished to proceed I marked the right upper extremity. She had no further questions.. DESCRIPTION OF PROCEDURE: Patient was brought to the operating theater. They were placed supine on the operating room table. Hand table was used. Limb was prepped and draped in the usual sterile fashion. I used chlorhexidine-based prep solution allowing over 3 minutes drying time prior to draping. 2 g of IV Ancef was given prior to starting the case. Local/MAC anesthesia was used. Preop erative timeout was performed confirming the site the patient and the surgery. I began by infiltrating 4 mL of percent Marcaine with epinephrine in and around the proposed incision site. This was on the palmar surface just distal to the wrist crease longitudinally in line with the fourth digit. The incision length was approximately 2 cm. I allowed the local anesthetic time to work. I carried the dissection down through skin and subcutaneous tissue to meticulous hemostasis. I incised the palmar fascia in line with the skin incision. I incised the transverse carpal ligament in line with the skin incision fully proximally and distally. Nerve appeared in continuity throughout the case. I thoroughly irrigated the wound with normal saline. I closed the subcutaneous tissues with 2-0 Vicryl sutures and the skin with 3-0 Ethilon in a horizontal mattress fashion. Wound cleaned with wet and dry dressing followed by application of non stick dressing, 4 x 8 gauze and overwrapped with Baylee type dressing. Patient was woken up from their sedation and transferred off the operating room table and taken to postanesthetic care unit in stable condition. All sponge, needle, instrument counts were correct. No complications. The patient is to start immediate hand wrist and elbow exercises but avoid heavy lifting and gripping-type activities for the first 6 weeks. They will be discharged home according to day surgery criteria. They can change the dressing postoperative day 1 and avoid showering over top or getting it wet for the first 14 days. Follow-up in the office in 2 weeks' time. Postoperative wound instructions were given. It was recommended to keep the wound clean and dry. Dressing changes as needed. It was reinforced with the patient that they should call us or be seen immediately for redness, drainage, or fever.. Risk factors for harms from taking opioid medications discussed and assessed inc luding but not limited to personal or family history of substance use disorder, anxiety or depression, , age 65 or older, COPD or other underlying respiratory conditions, and renal or hepatic insufficiency. Discussed with patient concerns and determined any harms they may experience or be currently experiencing such as nausea or constipation, feeling sedated or confused, breathing interruptions during sleep, or taking or craving more opioids than prescribed or difficulty controlling use (addiction). Discussed early warning signs of overdose including confusion, sedation, slurred speech, abnormal gait. TAURUS MOON MD Mar 15, 2021 08:33
--- NOTE | 2021-03-15 09:12 | REP ---
INDICATION: CARPAL TUNNEL COMPARISON: None. TECHNIQUE: AP, lateral, bilateral oblique views right hand. FINDINGS: Advanced osteoarthritic degenerative changes are appreciated. Cortical irregularity, heterotopic ossification, joint space narrowing/obliteration and chronic subluxation noted at the 1st and 2nd carpometacarpal joints. More mild joint space narrowing and cortical irregularities noted through the remaining radiocarpal and carpometacarpal joints. Periarticular sclerosis, joint space narrowing and osteophytosis identified at the 1st metacarpophalangeal joint as well as the 1st through 5th interphalangeal joints. No acute fracture or dislocation. IMPRESSION: Advanced osteoarthritic degenerative changes.. No acute fracture or dislocation. <Electronically signed by Jose Mcintosh > 03/15/21 0949
== END 2021-03-15 09:08 | disposition home or self-care (01) ==
LOC: M SDC 06:14
PROVIDERS: ATTEND Orthopaedic Surgery Sports Medicine
DX: G56.01 Carpal tunnel syndrome, right upper limb (principal); I10 Essential (primary) hypertension; E11.9 Type 2 diabetes mellitus without complications; E78.00 Pure hypercholesterolemia, unspecified; E03.9 Hypothyroidism, unspecified; G47.30 Sleep apnea, unspecified; I48.91 Unspecified atrial fibrillation; Z79.84 Long term (current) use of oral hypoglycemic drugs; Z79.899 Other long term (current) drug therapy; Z79.01 Long term (current) use of anticoagulants; F32.9 Major depressive disorder, single episode, unspecified; F41.9 Anxiety disorder, unspecified; Z88.7 Allergy status to serum and vaccine
CPT/HCPCS: 64721; 73130; J0690; J1100; J1885; J2250; J2405; J3010

== ENCOUNTER → 2021-05-08 | Outpatient (REF) | payer MEDICARE, OTHER ==
[~2021-05-08] MED LIST changes: -LR 1,000 ML IV ONE; -ceFAZolin SOD 2 GM in IV 1 EA IV ONE
[2021-05-08 12:55] LABS: HEMATOCRIT 40.2 % (36.0-47.0); HEMOGLOBIN 12.4 g/dl (12.0-15.5); MEAN CORPUSCULAR HEMOGLOBIN 27.6 pg (27.0-33.0); MEAN CORPUSCULAR HGB CONC 30.8 g/dl (32.0-36.5); MEAN CORPUSCULAR VOLUME 89.3 fl (80.0-96.0); PLATELET COUNT, AUTOMATED 202 10^3/uL (150-450); WHITE BLOOD COUNT 8.6 10^3/uL (4.0-10.0)
[2021-05-08 13:28] LABS: ALT/SGPT 27 U/L (12-78); BILIRUBIN,TOTAL 0.4 MG/DL (0.2-1.0); BLOOD UREA NITROGEN 16 MG/DL (7-18); CALCIUM LEVEL 9.5 MG/DL (8.8-10.2); CARBON DIOXIDE LEVEL 30 MEQ/L (21-32); CHLORIDE LEVEL 107 MEQ/L (98-107); CHOLESTEROL LEVEL 145 MG/DL (<200); CHOLESTEROL RISK RATIO 3.085 (<5); CREATININE FOR GFR 0.95 MG/DL (0.55-1.30); FREE T4 1.13 NG/DL (0.76-1.46); GLOMERULAR FILTRATION RATE > 60.0 (>39); GLUCOSE, FASTING 157 MG/DL (70-100); HDL CHOLESTEROL 47 MG/DL (>40); LDL CHOLESTEROL 74 MG/DL (<100); NON-HDL-C 98 MG/DL; POTASSIUM SERUM 5.3 MEQ/L (3.5-5.1); SODIUM LEVEL 142 MEQ/L (136-145); TRIGLYCERIDES LEVEL 120 MG/DL (<150)
[2021-05-08 13:34] LABS: MALB URINE SIEMENS 29.9 MG/L; MAU/CREAT RATIO 24.9 MCG/MG (0.0-30.0)
[2021-05-08 13:54] LABS: HEMOGLOBIN A1c 7.5 %
== END ==
LOC: M SFHCADAM 09:10
PROVIDERS: ATTEND Family Medicine
DX: K86.81 Exocrine pancreatic insufficiency (principal); E11.9 Type 2 diabetes mellitus without complications; E03.9 Hypothyroidism, unspecified; E78.2 Mixed hyperlipidemia

== ENCOUNTER → 2021-12-12 | Outpatient (REF) | payer MEDICARE, OTHER | LOC: M SFHCADAM 16:05 | PROVIDERS: ATTEND Physician Assistant | DX: R09.81 Nasal congestion (principal) ==

== ENCOUNTER → 2022-01-05 | Outpatient (CLI) | payer MEDICARE, BC, OTHER ==
[2022-01-05 13:41] LABS: HEMOGLOBIN A1c 7.6 %
[2022-01-05 13:55] LABS: BLOOD UREA NITROGEN 20 MG/DL (7-18); CALCIUM LEVEL 10.2 MG/DL (8.8-10.2); CARBON DIOXIDE LEVEL 31 MEQ/L (21-32); CHLORIDE LEVEL 109 MEQ/L (98-107); CREATININE FOR GFR 0.89 MG/DL (0.55-1.30); GLOMERULAR FILTRATION RATE > 60.0 (>39); GLUCOSE, FASTING 136 MG/DL (70-100); POTASSIUM SERUM 4.5 MEQ/L (3.5-5.1); SODIUM LEVEL 143 MEQ/L (136-145)
== END ==
LOC: M PLALAB 10:58
PROVIDERS: ATTEND Family Medicine
DX: E11.9 Type 2 diabetes mellitus without complications (principal)

== ENCOUNTER → 2022-06-29 | Outpatient (REF) | payer MEDICARE, OTHER ==
[2022-06-29 16:54] LABS: HEMATOCRIT 38.7 % (36.0-47.0); HEMOGLOBIN 12.2 g/dl (12.0-15.5); MEAN CORPUSCULAR HEMOGLOBIN 27.4 pg (27.0-33.0); MEAN CORPUSCULAR HGB CONC 31.5 g/dl (32.0-36.5); MEAN CORPUSCULAR VOLUME 86.8 fl (80.0-96.0); PLATELET COUNT, AUTOMATED 173 10^3/uL (150-450); RED BLOOD COUNT 4.46 10^6/uL (4.00-5.40); WHITE BLOOD COUNT 7.4 10^3/uL (4.0-10.0)
[2022-06-29 17:01] LABS: HEMOGLOBIN A1c 7.3 %
[2022-06-29 17:54] LABS: ALT/SGPT 28 U/L (12-78); BILIRUBIN,TOTAL 0.6 MG/DL (0.2-1.0); BLOOD UREA NITROGEN 19 MG/DL (7-18); CALCIUM LEVEL 9.5 MG/DL (8.8-10.2); CARBON DIOXIDE LEVEL 30 MEQ/L (21-32); CHLORIDE LEVEL 106 MEQ/L (98-107); CHOLESTEROL LEVEL 129 MG/DL (<200); CHOLESTEROL RISK RATIO 2.529 (<5); CREATININE FOR GFR 0.96 MG/DL (0.55-1.30); FREE T4 1.22 NG/DL (0.76-1.46); GLOMERULAR FILTRATION RATE > 60.0 (>39); GLUCOSE, FASTING 120 MG/DL (70-100); HDL CHOLESTEROL 51 MG/DL (>40); LDL CHOLESTEROL 58 MG/DL (<100); NON-HDL-C 78 MG/DL; SODIUM LEVEL 140 MEQ/L (136-145); THYROID STIMULATING HORMONE 0.833 uIU/ML (0.358-3.740); TOTAL PROTEIN 7.1 GM/DL (6.4-8.2); TRIGLYCERIDES LEVEL 98 MG/DL (<150)
[2022-06-29 18:17] LABS: VITAMIN B12 LEVEL 566 PG/ML (247-911)
== END ==
LOC: M SFHCADAM 13:06
PROVIDERS: ATTEND Family Medicine
DX: E11.9 Type 2 diabetes mellitus without complications (principal); E78.2 Mixed hyperlipidemia; E03.9 Hypothyroidism, unspecified; I48.91 Unspecified atrial fibrillation; D51.3 Other dietary vitamin B12 deficiency anemia

== ENCOUNTER 2022-08-02 10:31 | Outpatient (RCR) | payer MEDICARE, BC, OTHER | END 2022-08-13 | LOC: M PT 10:31 | PROVIDERS: ATTEND Physician Assistant | DX: S16.1XXA Strain of muscle, fascia and tendon at neck level, initial encounter (principal); X58.XXXA Exposure to other specified factors, initial encounter; Y92.9 Unspecified place or not applicable; Y93.9 Activity, unspecified; Y99.9 Unspecified external cause status ==

== ENCOUNTER 2022-08-17 10:45 | Outpatient (RCR) | payer MEDICARE, BC, OTHER | END 2022-09-12 | LOC: M PT 10:45 | PROVIDERS: ATTEND Physician Assistant | DX: S16.1XXA Strain of muscle, fascia and tendon at neck level, initial encounter (principal); X58.XXXA Exposure to other specified factors, initial encounter; Y92.9 Unspecified place or not applicable; Y93.9 Activity, unspecified; Y99.9 Unspecified external cause status ==

== ENCOUNTER → 2023-01-14 | Outpatient (CLI) | payer MEDICARE, BC, OTHER ==
[2023-01-14 11:35] LABS: HEMATOCRIT 36.5 % (36.0-47.0); HEMOGLOBIN 10.9 g/dl (12.0-15.5); MEAN CORPUSCULAR HEMOGLOBIN 24.7 pg (27.0-33.0); MEAN CORPUSCULAR HGB CONC 29.9 g/dl (32.0-36.5); MEAN CORPUSCULAR VOLUME 82.6 fl (80.0-96.0); PLATELET COUNT, AUTOMATED 197 10^3/uL (150-450); RED BLOOD COUNT 4.42 10^6/uL (4.00-5.40); WHITE BLOOD COUNT 7.9 10^3/uL (4.0-10.0)
[2023-01-14 11:44] LABS: ALKALINE PHOSPHATASE 94 U/L (46-116); ALT/SGPT 19 U/L (7.0-40); AST/SGOT 18 U/L (<34); BILIRUBIN,TOTAL 0.7 MG/DL (0.3-1.2); BLOOD UREA NITROGEN 13 MG/DL (9-23); CALCIUM LEVEL 9.3 MG/DL (8.3-10.6); CARBON DIOXIDE LEVEL 31 MMOL/L (20-31); CHLORIDE LEVEL 104 MMOL/L (98-107); CHOLESTEROL LEVEL 127 MG/DL (<200); CHOLESTEROL RISK RATIO 2.69 (<5); CREATININE FOR GFR 0.81 MG/DL (0.55-1.30); FOLATE > 24.00 NG/ML (>5.4); FREE T4 1.25 NG/DL (0.89-1.76); GLOMERULAR FILTRATION RATE > 60.0 (>39); GLUCOSE, FASTING 166 MG/DL (74-106); HDL CHOLESTEROL 47.1 MG/DL (>40); NON-HDL-C 79.9 MG/DL; POTASSIUM SERUM 5.1 MMOL/L (3.5-5.1); SODIUM LEVEL 136 MMOL/L (136-145); THYROID STIMULATING HORMONE 4.623 uIU/ML (0.55-4.78); VITAMIN B12 LEVEL 378 PG/ML (211-911)
[2023-01-14 12:12] LABS: HEMOGLOBIN A1c 7.6 % (4.0-6.0)
[2023-01-14 18:42] LABS: LDL CHOLESTEROL 58.1 MG/DL (<100); TOTAL PROTEIN 6.6 G/DL (5.7-8.2); TRIGLYCERIDES LEVEL 109 MG/DL (<150)
== END ==
LOC: M PLALAB 07:50
PROVIDERS: ATTEND Family Medicine
DX: E11.9 Type 2 diabetes mellitus without complications (principal); E03.9 Hypothyroidism, unspecified; E78.2 Mixed hyperlipidemia; I48.91 Unspecified atrial fibrillation; D51.9 Vitamin B12 deficiency anemia, unspecified

== ENCOUNTER → 2023-01-17 | Outpatient (CLI) | payer MEDICARE, BC, OTHER | LOC: M WHC 15:13 | PROVIDERS: ATTEND Nurse Practitioner Family | DX: Z12.31 Encounter for screening mammogram for malignant neoplasm of breast (principal); Z78.0 Asymptomatic menopausal state; Z92.29 Personal history of other drug therapy ==

== ENCOUNTER 2023-01-30 16:03 | Emergency (ER) | payer MEDICARE, BC, OTHER ==
[~2023-01-30] VITALS: Ht 157.5 cm; Wt 63.6 kg
[2023-01-30 17:42] VITALS: BP 169/82
== END 2023-01-30 17:47 | disposition home or self-care (01) ==
LOC: M ED 16:03
DX: S93.402A Sprain of unspecified ligament of left ankle, initial encounter (principal); W54.1XXA Struck by dog, initial encounter; Y92.89 Other specified places as the place of occurrence of the external cause; I48.91 Unspecified atrial fibrillation; E03.9 Hypothyroidism, unspecified; I10 Essential (primary) hypertension; E78.5 Hyperlipidemia, unspecified; Z79.01 Long term (current) use of anticoagulants; Z79.899 Other long term (current) drug therapy; Z88.7 Allergy status to serum and vaccine

== ENCOUNTER 2023-02-26 13:52 | Outpatient (RCR) | payer MEDICARE, BC, OTHER | END 2023-03-13 | LOC: M PT 13:52 | PROVIDERS: ATTEND Physician Assistant | DX: S93.402A Sprain of unspecified ligament of left ankle, initial encounter (principal); X58.XXXA Exposure to other specified factors, initial encounter; Y92.9 Unspecified place or not applicable; Y93.9 Activity, unspecified; Y99.9 Unspecified external cause status ==

== ENCOUNTER 2023-04-10 13:45 | Outpatient (RCR) | payer MEDICARE, BC, OTHER | END 2023-04-12 | LOC: M PT 13:45 | PROVIDERS: ATTEND Physician Assistant | DX: S93.402A Sprain of unspecified ligament of left ankle, initial encounter (principal); X58.XXXA Exposure to other specified factors, initial encounter; Y92.9 Unspecified place or not applicable; Y93.9 Activity, unspecified; Y99.9 Unspecified external cause status ==

== ENCOUNTER → 2023-08-09 | Outpatient (REF) | payer MEDICARE, OTHER, BC ==
[2023-08-09 18:16] LABS: APPEARANCE, URINE MANUAL HAZY (CLEAR)
[2023-08-09 18:17] LABS: COLOR, URINE MANUAL RED (YELLOW)
[2023-08-09 18:23] LABS: BILIRUBIN, URINE MANUAL NEGATIVE (NEGATIVE); BLOOD URINE MANUAL POSITIVE (NEGATIVE); GLUCOSE, URINE (UA) MANUAL 4+(1000 MG/DL) mg/dL (NEGATIVE); KETONE, URINE MANUAL NEGATIVE (NEGATIVE); LEUKOCYTE ESTERASE, URINE MAN POSITIVE (NEGATIVE); NITRITE, URINE MANUAL NEGATIVE (NEGATIVE); PROTEIN, URINE MANUAL 3+ mg/dL (NEGATIVE); SPECIFIC GRAVITY,URINE MANUAL 1.026 (1.002-1.035); UROBILINOGEN, URINE MANUAL NORMAL (NORMAL)
[2023-08-09 18:24] LABS: RBC, URINE TNTC /hpf (0-3); WBC, URINE TNTC /hpf (0-3)
[2023-08-09 18:25] LABS: BACTERIA, URINE SMALL AMOUNT; HYALINE CAST, URINE NONE SEEN /lpf (0-1); TRANSITIONAL EPI CELLS, URINE SMALL AMOUNT /hpf
== END ==
LOC: M LAB REF 16:22
PROVIDERS: ATTEND Physician Assistant
DX: N39.0 Urinary tract infection, site not specified (principal)

== ENCOUNTER → 2024-01-13 | Outpatient (CLI) | payer MEDICARE, OTHER, BC ==
[2024-01-13 12:48] LABS: FREE T4 1.35 NG/DL (0.89-1.76); VITAMIN B12 LEVEL 576 PG/ML (211-911)
[2024-01-13 12:49] LABS: HEMATOCRIT 37.6 % (36.0-47.0); HEMOGLOBIN 11.3 g/dl (12.0-15.5); MEAN CORPUSCULAR HEMOGLOBIN 25.5 pg (27.0-33.0); MEAN CORPUSCULAR HGB CONC 30.1 g/dl (32.0-36.5); MEAN CORPUSCULAR VOLUME 84.9 fl (80.0-96.0); PLATELET COUNT, AUTOMATED 166 10^3/uL (150-450); RED BLOOD COUNT 4.43 10^6/uL (4.00-5.40); WHITE BLOOD COUNT 6.3 10^3/uL (4.0-10.0)
[2024-01-13 12:53] LABS: ALBUMIN 3.9 G/DL (3.2-5.2); ALKALINE PHOSPHATASE 89 U/L (46-116); ALT/SGPT 24 U/L (7.0-40); AST/SGOT 21 U/L (<34); BILIRUBIN,TOTAL 0.5 MG/DL (0.3-1.2); BLOOD UREA NITROGEN 15 MG/DL (9-23); CALCIUM LEVEL 9.6 MG/DL (8.3-10.6); CARBON DIOXIDE LEVEL 30 MMOL/L (20-31); CHLORIDE LEVEL 109 MMOL/L (98-107); CHOLESTEROL LEVEL 112 MG/DL (<200); CHOLESTEROL RISK RATIO 2.24 (<5); CREATININE FOR GFR 0.73 MG/DL (0.55-1.30); GLOMERULAR FILTRATION RATE > 60.0 (>39); GLUCOSE, FASTING 134 MG/DL (74-106); POTASSIUM SERUM 4.3 MMOL/L (3.5-5.1); SODIUM LEVEL 145 MMOL/L (136-145); TOTAL PROTEIN 6.5 G/DL (5.7-8.2); TRIGLYCERIDES LEVEL 75 MG/DL (<150)
[2024-01-13 12:55] LABS: THYROID STIMULATING HORMONE 0.283 uIU/ML (0.55-4.78)
[2024-01-13 13:08] LABS: CREATININE, URINE 65.2 MG/DL
[2024-01-13 13:09] LABS: MAU/CREAT RATIO 7.6 MCG/MG (0.0-30.0)
[2024-01-13 13:15] LABS: HEMOGLOBIN A1c 6.9 % (4.0-6.0)
== END ==
LOC: M PLALAB 09:21
PROVIDERS: ATTEND Family Medicine
DX: D51.3 Other dietary vitamin B12 deficiency anemia (principal); E03.9 Hypothyroidism, unspecified; E11.9 Type 2 diabetes mellitus without complications; E78.2 Mixed hyperlipidemia

== ENCOUNTER → 2024-07-20 | Outpatient (REF) | payer MEDICARE, BC ==
[~2024-07-20] MED LIST changes: -DOXY20TA4 PO; +DOXY20TA6 PO
[2024-07-20 14:55] LABS: BLOOD UREA NITROGEN 19 MG/DL (9-23); CALCIUM LEVEL 9.7 MG/DL (8.3-10.6); CARBON DIOXIDE LEVEL 29 MMOL/L (20-31); CHLORIDE LEVEL 109 MMOL/L (98-107); CREATININE FOR GFR 0.83 MG/DL (0.55-1.30); GLOMERULAR FILTRATION RATE > 60.0 (>39); GLUCOSE, FASTING 118 MG/DL (74-106); SODIUM LEVEL 144 MMOL/L (136-145)
[2024-07-20 15:37] LABS: HEMOGLOBIN A1c 6.1 % (4.0-6.0)
== END ==
LOC: M SFHCADAM 07:59
PROVIDERS: ATTEND Family Medicine
DX: E11.9 Type 2 diabetes mellitus without complications (principal)

== ENCOUNTER → 2024-08-05 | Outpatient (CLI) | payer MEDICARE, BC | LOC: M WHC 08:46 | PROVIDERS: ATTEND Family Medicine | DX: Z12.31 Encounter for screening mammogram for malignant neoplasm of breast (principal); Z13.820 Encounter for screening for osteoporosis; M85.851 Other specified disorders of bone density and structure, right thigh; M85.852 Other specified disorders of bone density and structure, left thigh; M85.88 Other specified disorders of bone density and structure, other site ==

== ENCOUNTER → 2024-08-20 | Outpatient (CLI) | payer MEDICARE, BC | LOC: M PLAIMG 09:27 | PROVIDERS: ATTEND Registered Nurse | DX: I34.0 Nonrheumatic mitral (valve) insufficiency (principal) ==

== ENCOUNTER → 2024-11-26 | Outpatient (REF) | payer MEDICARE, BC ==
[2024-11-26 18:55] LABS: HEMATOCRIT 37.8 % (36.0-47.0); HEMOGLOBIN 11.4 g/dl (12.0-15.5); MEAN CORPUSCULAR HEMOGLOBIN 25.4 pg (27.0-33.0); MEAN CORPUSCULAR HGB CONC 30.2 g/dl (32.0-36.5); MEAN CORPUSCULAR VOLUME 84.2 fl (80.0-96.0); PLATELET COUNT, AUTOMATED 215 10^3/uL (150-450); RED BLOOD COUNT 4.49 10^6/uL (4.00-5.40); WHITE BLOOD COUNT 6.3 10^3/uL (4.0-10.0)
[2024-11-26 18:56] LABS: HEMOGLOBIN A1c 6.4 % (4.0-6.0)
[2024-11-26 19:06] LABS: CREATININE, URINE 77.5 MG/DL; MAU/CREAT RATIO 5.1 MCG/MG (0.0-30.0)
[2024-11-26 19:13] LABS: ALKALINE PHOSPHATASE 102 U/L (35-104); ALT/SGPT 17 U/L (7.0-40); AST/SGOT 19 U/L (<34); BILIRUBIN,TOTAL 0.5 MG/DL (0.3-1.2); BLOOD UREA NITROGEN 15 MG/DL (9-23); CALCIUM LEVEL 9.7 MG/DL (8.3-10.6); CARBON DIOXIDE LEVEL 28 MMOL/L (20-31); CHLORIDE LEVEL 105 MMOL/L (98-107); CHOLESTEROL LEVEL 122 MG/DL (<200); CREATININE FOR GFR 0.87 MG/DL (0.55-1.30); GLOMERULAR FILTRATION RATE > 60.0 (>39); GLUCOSE, FASTING 118 MG/DL (74-106); LDL CHOLESTEROL 47.6 MG/DL (<100); POTASSIUM SERUM 4.9 MMOL/L (3.5-5.1); SODIUM LEVEL 142 MMOL/L (136-145); TOTAL PROTEIN 7.1 G/DL (5.7-8.2); TRIGLYCERIDES LEVEL 107 MG/DL (<150)
[2024-11-26 19:17] LABS: THYROID STIMULATING HORMONE 0.481 uIU/ML (0.55-4.78)
[2024-11-26 19:19] LABS: FREE T4 1.54 NG/DL (0.89-1.76)
[2024-11-26 19:23] LABS: VITAMIN B12 LEVEL 638 PG/ML (211-911)
== END ==
LOC: M SFHCADAM 13:57
PROVIDERS: ATTEND Family Medicine
DX: E11.9 Type 2 diabetes mellitus without complications (principal); F32.9 Major depressive disorder, single episode, unspecified; D51.9 Vitamin B12 deficiency anemia, unspecified; E78.2 Mixed hyperlipidemia; E03.9 Hypothyroidism, unspecified; I48.91 Unspecified atrial fibrillation

== ENCOUNTER → 2025-05-27 | Outpatient (CLI) | payer MEDICARE, BC ==
[~2025-05-27] MED LIST changes: -BYDU2INJ7 SC; +EXEN2AUT SC; +LISI40TA10 PO; -LISI40TA4 PO
[2025-05-27 11:21] LABS: PLATELET COUNT, AUTOMATED 215 10^3/uL (150-450)
[2025-05-27 11:55] LABS: ESTIMATED AVERAGE GLUCOSE 140.0 MG/DL (60-110)
[2025-05-27 11:56] LABS: ALT/SGPT 20.0 U/L (7.0-40); AST/SGOT 23.0 U/L (<34); CALCIUM LEVEL 9.3 MG/DL (8.3-10.6); CARBON DIOXIDE LEVEL 30.0 MMOL/L (20-31); CHLORIDE LEVEL 102.0 MMOL/L (98-107); CREATININE FOR GFR 0.82 MG/DL (0.55-1.30); GLOMERULAR FILTRATION RATE 72.7 (>39); POTASSIUM SERUM 4.8 MMOL/L (3.5-5.1); SODIUM LEVEL 141.0 MMOL/L (136-145)
[2025-05-27 11:57] LABS: TOTAL 25(OH) VITAMIN D 41.1 NG/ML (20.0-100.0)
[2025-05-27 11:58] LABS: FREE T4 1.33 NG/DL (0.89-1.76)
== END ==
LOC: M PLALAB 08:59
PROVIDERS: ATTEND Family Medicine
DX: M81.0 Age-related osteoporosis without current pathological fracture (principal); E03.9 Hypothyroidism, unspecified; E11.9 Type 2 diabetes mellitus without complications; I48.91 Unspecified atrial fibrillation

== ENCOUNTER → 2025-06-04 | Outpatient (CLI) | payer MEDICARE, BC | LOC: M PLAIMG 10:01 | PROVIDERS: ATTEND Physician Assistant | DX: M19.042 Primary osteoarthritis, left hand (principal) ==

== ENCOUNTER → 2025-07-06 | Outpatient (CLI) | payer MEDICARE, BC | LOC: M WHC 09:42 | PROVIDERS: ATTEND Physician Assistant | DX: M79.89 Other specified soft tissue disorders (principal) ==